=== PATIENT | female | born 1980 ===

== ENCOUNTER 2017-05-25 22:37 | Emergency (ER) | payer SELFPAY ==
[2017-05-25 22:45] VITALS: BP 145/84; PULSE 70; RESP 18; TEMP 98.3; O2SAT 100
[2017-05-25 23:17] LABS: URINE BACTERIA RARE (<OCC); URINE BILIRUBIN NEGATIVE (NEGATIVE); URINE BLOOD NEGATIVE (NEGATIVE); URINE COLOR Colorless (YELLOW); URINE GLUCOSE (UA) NORMAL (Normal); URINE KETONE NEGATIVE (NEGATIVE); URINE LEUKOCYTE ESTERASE NEG Leu/uL (Negative); URINE PROTEIN NEGATIVE (NEGATIVE); URINE UROBILINOGEN NORMAL mg/dL (0.2-1.0); WBC URINE 1 /hpf (0-5)
[2017-05-25] MEDS ORDERED: Tmp-Smz 800 mg-160 mg DS Tab PO STA (23:21)
--- NOTE | 2017-05-25 23:36 | C.PDOC ---
History Of Present Illness The patient reports 1-2 day history of dysuria, which is associated with foul smelling urine and bilateral flank pain. The patient reports that she has a history of pyelonephritis in the past. denies fever, trauma, numbness, weakness , nausea, diarrhea, vomiting, Time Seen by Provider: 05/25/17 22:49 Chief Complaint (Nursing): Female Genitourinary History Per: Patient History/Exam Limitations: no limitations Onset/Duration Of Symptoms: Gradual, Persistent Current Symptoms Are (Timing): Still Present Pain Scale Rating Of: 5 Quality Of Discomfort: "Pain" Alleviating Factors: None Recent travel outside of the [place]: No Past Medical History Vital Signs: Last Vital Signs Temp 98.3 F 05/25/17 22:42 Pulse 70 05/25/17 22:42 Resp 18 05/25/17 22:42 BP 145/84 05/25/17 22:42 Pulse Ox 100 05/25/17 23:37 Surgical History: Family History: States: No Known Family Hx - Social History Hx Alcohol Use: No Hx Substance Use: No - Immunization History Hx Pneumococcal Vaccination: No Review Of Systems Except As Marked, All Systems Reviewed And Found Negative. Physical Exam - Physical Exam Appears: Non-toxic, No Acute Distress Skin: Normal Color, Warm, Dry, No Rash Head: Atraumatic, Normacephalic Eye(s): bilateral: Normal Inspection, PERRL, EOMI Nose: Normal Oral Mucosa: Moist Throat: Normal Neck: Normal ROM Cardiovascular: Rhythm Regular, No Friction Rub, No Murmur Respiratory: Normal Breath Sounds, No Rhonchi, No Stridor, No Wheezing Gastrointestinal/Abdominal: Normal Exam, Soft, No Tenderness Back: Normal Inspection, No CVA Tenderness Extremity: Normal ROM, No Swelling Neurological/Psych: Oriented x3, Normal Speech, Normal Motor, Normal Sensation Gait: Steady ED Course And Treatment O2 Sat by Pulse Oximetry: 100 Medical Decision Making Medical Decision Making: The UA is negative, but culture is sent. Patient was asked if she has vaginal pain or discharge, but the patient said and deferred the pelvic exam to her OBGYN. The patient will be treated based on symptoms. Disposition - Disposition Referrals: Non [facility] Provider, [Primary Care Provider] - Disposition: HOME/ ROUTINE Disposition Time: 23:36 Condition: GOOD Additional Instructions: Follow up with the medical doctor within 1-2 days. Return if worsened. Prescriptions: Ibuprofen [Motrin] 600 mg PO TID #21 tab Phenazopyridine HCl [Pyridium] 200 mg PO TID #10 tablet Sulfamethoxazole/Trimethoprim [Bactrim DS 800 mg-160 mg] 1 tab PO BID #14 tab Instructions: Urinary Tract Infection in Women (ED) Forms: [employer] (Danish) Print Language: TRISTANIAN - Clinical Impression Clinical Impression: UTI (urinary tract infection)
== END 2017-05-25 23:41 | disposition home or self-care (01) ==
LOC: C.ER 22:37 → SUPCPDRO 22:37 → C.ER 23:41
DX: N39.0 Urinary tract infection, site not specified (principal)